=== PATIENT | male | born 1955 | race Caucasian/White ===

== ENCOUNTER → 2019-02-24 10:24 | Outpatient (CLI) | payer SELFPAY ==
[2019-02-24 10:38] VITALS: BP 108/64; PULSE 54; RESP 16; TEMP 36.4; O2SAT 99; BMI 26.9
--- NOTE | 2019-02-24 11:32 | HTC.HP3 ---
Problem List (1) Hemophilia B in male Status: Chronic Subjective Date of Service:: 02/24/19 Chief Complaint: F/U for Hemophilia B. 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 Had an injury to the left leg, used factor replacement. Still has an ulcer with a scar on the left leg. Health History: Past Medical History Past Medical History: Clotting disorder,Glaucoma Past Surgical History Surgical: Hernia repair,Splenectomy Other Surgical History: R lower arm Family History Paternal Past Medical History: Unknown Paternal History of Cancer Colon cancer Maternal Past Medical History: Unknown Maternal History of Cancer: Stomach cancer Past Medical History (Last Reviewed 02/24/19 @ 11:23 by Nuha Lee) Clotting disorder (Acute) Glaucoma (Acute) Past Surgical History (Last Reviewed 02/24/19 @ 11:23 by Nuha Lee) History of hernia repair (Acute) History of splenectomy (Acute) Family History (Last Reviewed 02/24/19 @ 11:23 by Nuha Lee) Father Colon cancer Mother Stomach cancer Social History Smoking Status Never smoker Allergies/Adverse Reactions: Allergy/AdvReac Type Severity Reaction Status Date / Time aspirin AdvReac Low Verified 02/24/19 11:22 platelets Risk Factors Social History Smoking Status Never smoker Tobacco Risk Data: Tobacco Risk Smoking Status Never smoker Type of tobacco: Smokeless tobacco usage: Never Items/Day: Year started: Years used: Counseled to quit/cut down: Reason for no counseling performed: Reason for no pharmacotherapy: Tobacco use comments: Passive smoke exposure: No Substance Risk Drug use: No Caffeine use [drinks/day]: 3 Alcohol use: No Type of alcohol: Drinks per day: Has patient felt the need to cut down: Has the patient been annoyed by complaints: Has the patient felt guilty about drinking: Has the patient needed an eye industrial relations representative in the mornings: Comments: Date of last colonoscopy:: 05/17/09 Review of Systems Constitutional:: Denies: Fever, Sweats, Weight loss, Appetite change, Chills Cardiovascular:: Denies: Chest pain, Palpitations, Dyspnea on exertion, Orthopnea, PND, Shortness of breath Respiratory: Denies: Cough, Hemoptysis, Shortness of Breath, Wheezing Gastrointestinal:: Denies: Abdominal pain, Nausea, Vomiting, Diarrhea, Constipation, Hematochezia Genitourinary: Denies: Dysuria, Hematuria, 15, Flank pain Musculoskeletal:: Denies: Back pain, Myalgia, Arthralgia Skin: Denies: Rash, Skin Changes, Wounds Neurological:: Denies: Headache, Dizziness, Visual changes, Tinnitus, Hearing loss Psychiatric: Denies: Anxiety, Depression, Homicidal Ideations, Suicidal Ideations Vital Signs Height 5 ft 11 in Weight: 87.543 kg Weight in Pounds 193.0 lbs Pulse Ox 99 Temperature 97.5 F Pulse Rate 54 Respiratory Rate 16 Blood Pressure 108/64 Blood Pressure Position Sitting - Physical Exam General: Alert, Oriented x3, No apparent distress HEENT: Atraumatic, PERRLA, EOMI, Normocephalic Oropharynx:: Dry mucosa Neck:: Supple, Trachea midline. Negative for: JVD, bilateral Cardiac:: Regular rate, Regular rhythm, Normal S1, Normal S2. Negative for: Murmur Lungs: Clear to auscultation, Excusion symmetrical. Negative for: Rhonchi, Wheezes Abdomen:: Bowel sounds x 4, Soft, Non-tender, Non-distended. Negative for: Hepatosplenomegaly Extremities:: Negative for: Cyanosis, Edema Neurological: Neuro grossly intact Skin:: - - +5mm ulcer with scab.. Negative for: Lesions, Rash, Petechiae, Ecchymosis Psychiatric:: Appropriate affect, Euthymic Lymphatics:: Negative for: Cervical lymphadenopathy, Supraclavicular lymphadenopathy, Axillary lymphadenopathy Assessment and Plan Hemophilia B, clinically stable. Healing Ulcer L leg. Plan is to continue expectant management with Factor replacement as needed. To report to PCP if ulcer persist. RTC 1 yr. Primary Care Provider: No Primary Care Phys Referring Provider: Parrish Romero MD
== END ==
PROVIDERS: Referring Provider Internal Medicine Hematology & Oncology; Visit Provider Internal Medicine Medical Oncology
DX: D67 Hereditary factor IX deficiency (principal)